=== PATIENT | female | born 1985 | race Caucasian/White ===

== ENCOUNTER 2017-01-12 06:04 | Emergency (ER) | payer OTHER ==
[~2017-01-12] VITALS: Ht 162.6 cm; Wt 67.3 kg
[2017-01-12] MEDS ORDERED: HYDROCODONE/ACETAMINOPHEN 5-325 MG TABLET PO ONE (06:30)
[2017-01-12] MEDS ORDERED: IBUPROFEN 600 MG TABLET PO ONE (06:30)
[2017-01-12 10:33] VITALS: BP 127/75
== END 2017-01-12 10:41 | disposition home or self-care (01) ==
LOC: EMS 06:05
DX: S16.1XXA Strain of muscle, fascia and tendon at neck level, initial encounter (principal); R51 Headache; X58.XXXA Exposure to other specified factors, initial encounter; Y93.89 Activity, other specified; Y92.9 Unspecified place or not applicable; Y99.9 Unspecified external cause status
CPT/HCPCS: 70450; 72125; 81025; 99285

== ENCOUNTER 2017-07-29 12:01 | Emergency (ER) | payer OTHER ==
[~2017-07-29] VITALS: Ht 162.6 cm; Wt 80.0 kg
[2017-07-29] MEDS ORDERED: IBUPROFEN 800 MG TABLET PO ONE (16:00)
[2017-07-29 16:08] VITALS: BP 121/72
== END 2017-07-29 16:42 | disposition home or self-care (01) ==
LOC: EMS 12:03
DX: M79.642 Pain in left hand (principal); M79.89 Other specified soft tissue disorders; E78.00 Pure hypercholesterolemia, unspecified; I10 Essential (primary) hypertension; Z86.73 Personal history of transient ischemic attack (TIA), and cerebral infarction without residual deficits
CPT/HCPCS: 81025; 85379; 99285

== ENCOUNTER 2021-10-22 19:04 | Emergency (ER) | payer OTHER ==
[~2021-10-22] VITALS: Ht 162.6 cm; Wt 75.9 kg
[2021-10-22 19:38] LABS: APPEARANCE,URINE CLEAR (CLEAR); BILIRUBIN,URINE NEGATIVE (NEGATIVE); GLUCOSE, URINE (UA) NEGATIVE (NEGATIVE); KETONES,URINE NEGATIVE (NEGATIVE); LEUKOCYTE ESTERASE ,URINE TRACE (NEGATIVE); NITRATE,URINE NEGATIVE (NEGATIVE); OCCULT BLOOD,URINE MODERATE (NEGATIVE); PROTEIN,URINE NEGATIVE (NEGATIVE)
[2021-10-22 20:02] LABS: BACTERIA,URINE Few /HPF (None Seen)
[2021-10-22 21:17] VITALS: BP 115/61
== END 2021-10-22 21:19 | disposition home or self-care (01) ==
LOC: EMS 19:09
DX: N39.0 Urinary tract infection, site not specified (principal); R31.9 Hematuria, unspecified; I10 Essential (primary) hypertension
CPT/HCPCS: 81001; 84703; 99283